=== PATIENT | female | born 1975 | race African-American/Black ===

== ENCOUNTER 2017-02-03 15:56 | Emergency (ER) ==
[2017-02-03 16:06] VITALS: BP 100/71
== END 2017-02-03 17:08 | disposition left against medical advice (07) ==
LOC: P.ED 15:56
DX: M25.519 Pain in unspecified shoulder (principal)

== ENCOUNTER 2017-02-04 03:23 | Emergency (ER) ==
[2017-02-04] MEDS ORDERED: DEPO-MEDROL ONE (04:19)
[2017-02-04] MEDS ORDERED: XYLOCAINE-MPF 1% 5 ML ONE (04:19)
[2017-02-04] MEDS ORDERED: XYLOCAINE-MPF 1% INJ ONE (04:24)
[2017-02-04] MEDS ORDERED: DEPO-MEDROL IM ONE (04:24)
--- NOTE | 2017-02-04 04:35 | PROVIDER DOCUMENTATION ---
HPI-Musculoskeletal Pain/Inj - GENERAL Chief Complaint: Extremity Pain Stated Complaint: ARM/BACK PAIN Time Seen by Provider: 02/04/17 03:44 Source: patient - HX OF PRESENT ILLNESS-MUSKULOSKELTAL Nature of Presenting Problem: right shoulder hurts assenbly line Quality of Pain: reports: aching Severity in ED: moderate Onset/Duration: 3 days ago Timing: still present Modifying Factors: improves with: rest. worse with: exercise, movement, palpation Any recent injury?: No Locality of Occurance: Work Similar Symptoms Previously?: No Recently seen or treated by another doctor?: No Review of Systems - Adult - REVIEW OF SYSTEMS - ADULT Constitutional: reports: no symptoms reported Eyes: reports: no symptoms reported Ears, Nose, Mouth & Throat: reports: no symptoms reported Cardiovascular: reports: no symptoms reported Respiratory: reports: no symptoms reported Gastrointestinal: reports: no symptoms reported Genitourinary: reports: no symptoms reported Musculoskeletal: reports: joint pain Integumentary: reports: no symptoms reported Neurological: reports: no symptoms reported Endocrine: reports: no symptoms reported Hematologic/Lymphatic: reports: no symptoms reported Allergic/Immunologic: reports: no symptoms reported Past History - Adult - PAST MEDICAL HISTORY-ADULT Review of Records: reports: Nursing Assessment Review, Medications Reviewed, Social history reviewed & non-contributory. Major Childhood Illnesses: reports: denies history Cardiovascular: reports: denies history Respiratory: reports: denies history Gastrointestinal: reports: denies history Musculoskeletal: reports: chronic pain Neurological: reports: denies history Endocrine/Immune: reports: denies history - PRIOR SURGERIES/PROCEDURES Surgical/Procedure History: reports: BTL - PRIOR HOSPITALIZATIONS Prior Hospitalizations: reports: for other non-related - IMMUNIZATION STATUS Childhood Immunizations: See Nurse Assessment Flu Vaccine: See Nurse Assessment Physical Exam-Injury Related - Physical Exam-Injury Related Initial Vital Signs Reviewed: Yes General Appearance: appears well, alert, no apparent distress Eyes: PERRL/EOMI Head, Ears, Nose, Mouth & Throat: normocephalic/atraumatic Neck: supple Respiratory: no respiratory distress Cardiovascular: regular rate, rhythm Lymphatic: no adenopathy Back Exam: normal inspection Extremity: normal capillary refill, tenderness Integumentary: normal color Neurologic: grossly normal Psych/Mental Status: oriented x 3 Procedures - ADDITIONAL PROCEDURES Additional Procedure: Injection of Bursa/Joint (depomedrol 40 1% xylocaine right shoulder) Departure - Departure Time of Disposition Order: 04:36 DIAGNOSIS: Supraspinatus tenosynovitis Qualifiers: Laterality: right Qualified Code(s): M65.811 - Other synovitis and tenosynovitis, right shoulder Disposition: HOME 01 Certified Medical Emergency: Emergent Condition: Stable Additional Instructions: ED Follow Up Instructions: You have been treated by a care provider in the Emergency Department. These instructions are being provided to you so you can have an understanding of how to care for yourself upon discharge. Upon discharge from the Emergency Department, you are responsible for making arrangements for follow-up care by a physician of your choice. Take all prescribed medications as directed. Return to the Emergency Department immediately for any new or worsening symptoms. You may call the Physician Referral phone number at [phone] to obtain a list of Physicians who are taking new patients. Prescriptions: Celecoxib [Celebrex] 200 mg PO DAILY PRN #14 capsule PRN Reason: Pain
[2017-02-04 04:52] VITALS: BP 123/80
== END 2017-02-04 04:52 | disposition home or self-care (01) ==
LOC: P.ED 03:23
DX: M65.811 Other synovitis and tenosynovitis, right shoulder (principal); M25.511 Pain in right shoulder; G89.29 Other chronic pain
CPT/HCPCS: J1030

== ENCOUNTER 2017-02-06 03:24 | Emergency (ER) ==
[2017-02-06 03:35] VITALS: BP 118/69
--- NOTE | 2017-02-06 03:40 | PROVIDER DOCUMENTATION ---
HPI-Psychological Disorder - General Chief Complaint: Anxiety Stated Complaint: PANIC ATTACKS Time Seen by Provider: 02/06/17 03:37 Source: patient Unable to obtain history due to:: urgency Allergies/Adverse Reactions: Patient Allergies Allergy/AdvReac Type Severity Reaction Status Date / Time No Known Allergies Allergy Verified 02/06/17 03:35 Home Medications: Home Medication List Medication Instructions Recorded Confirmed Last Taken Type Alprazolam [Xanax] 0.25 mg PO TID PRN #10 tablet 02/06/17 Unknown Rx - History of Present Illness-Psych Onset/Duration: reports: unsure Timing: reports: still present Severity: reports: mild Situational problems related to:: reports: daughter Psychiatric Complaints: reports: denies symptoms Substance Use: reports: none/never Previous psych related hospitalizations?: Yes Similar Symptoms Previously?: Yes Recently seen or treated by another doctor?: Yes Review of Systems - Adult - REVIEW OF SYSTEMS - ADULT Constitutional: reports: no symptoms reported Eyes: reports: no symptoms reported Ears, Nose, Mouth & Throat: reports: no symptoms reported Cardiovascular: reports: no symptoms reported Respiratory: reports: no symptoms reported Gastrointestinal: reports: no symptoms reported Genitourinary: reports: no symptoms reported Musculoskeletal: reports: no symptoms reported Integumentary: reports: no symptoms reported Neurological: reports: no symptoms reported Psychiatric: reports: no symptoms reported Endocrine: reports: no symptoms reported Hematologic/Lymphatic: reports: no symptoms reported Allergic/Immunologic: reports: no symptoms reported All Other Systems: Reviewed and Negative Past History - Adult - PAST MEDICAL HISTORY-ADULT Review of Records: reports: Old Records Reviewed, Nursing Assessment Review, Medications Reviewed, Social history reviewed & non-contributory. Major Childhood Illnesses: reports: denies history Cardiovascular: reports: denies history Respiratory: reports: denies history Gastrointestinal: reports: denies history Obstetrical/Gynecological: reports: denies history Genitourinary: reports: denies history Musculoskeletal: reports: chronic pain Neurological: reports: denies history Endocrine/Immune: reports: denies history Other Conditions: reports: denies history - PRIOR SURGERIES/PROCEDURES Surgical/Procedure History: reports: BTL - PRIOR HOSPITALIZATIONS Prior Hospitalizations: reports: for other non-related - IMMUNIZATION STATUS Childhood Immunizations: See Nurse Assessment Flu Vaccine: See Nurse Assessment - FAMILY HISTORY Family History: reviewed, not pertinent Physical Exam-Psych Focus - Physical Exam-Psych Initial Vital Signs Reviewed: Yes Appearance: appropriate appearance Neurological: alert Behavior/Eye Contact/Speech: good eye contact Thoughts/Hallucinations: normal thought pattern HENMT: normal ENT inspection Neck: normal inspection Respiratory: chest non-tender Cardiovascular: normal peripheral pulses Abdominal Exam: normal bowel sounds Lymphatic: no adenopathy Back Exam: normal inspection Extremity: normal range of motion Integumentary: normal color Departure - Departure Time of Disposition Order: 03:30 DIAGNOSIS: Anxiety Disposition: HOME 01 Certified Medical Emergency: Emergent Condition: Stable Prescriptions: Alprazolam [Xanax] 0.25 mg PO TID PRN #10 tablet PRN Reason: Anxiety Referrals: None,PCP [Primary Care Provider] - Forms: Return to School/Parent Work Instructions: Alprazolam tablets, Panic Attacks
== END 2017-02-06 03:48 | disposition home or self-care (01) ==
LOC: P.ED 03:24
DX: F41.9 Anxiety disorder, unspecified (principal)
CPT/HCPCS: 99282